=== PATIENT | female | born 1965 | race Caucasian/White ===

== ENCOUNTER → 2018-04-02 | Outpatient (CLI) | payer OTHER ==
[~2018-04-02] MED LIST: CLX20 PO; DICL-201 PO; EFF375 PO; EFF50 PO; FLX10 PO; HYDR-4079 PO; IRON
--- NOTE | 2018-04-03 13:44 | POLYSOMNOGRAPH REPORT ---
CLINICAL DATA: A 52-year-old female with a BMI of 23.56, referred by Dr. Lianne Lewis with symptoms of snoring and awakening gasping from sleep. She has very poor sleep hygiene. She does drink caffeinated beverages throughout the day and night. She does smoke cigarettes. SLEEP ARCHITECTURE: Total sleep period was 522.5 minutes. Total sleep time was 467.5 minutes divided between 438.5 minutes of non-REM sleep and 29 minutes of REM sleep. Sleep onset latency was 5.5 minutes. REM latency was delayed at 292 minutes. Sleep efficiency was 89%. Wake after sleep onset was 55 minutes. Sleep consisted of stage N2 77%, stage N3 16%, REM 6%, and stage N1 less than 1%. AROUSAL DATA: 82 arousals were recorded for an index of 11 per hour. PLM DATA: 84 limb movements during sleep were noted for an index of 10.8 per hour with arousal index of 0.5 per hour. RESPIRATORY DATA: Moderate sleep apnea was documented. The AHI was 16.8. There were 4 obstructive apneic episodes. The longest apneic episode was 15 seconds. There were 127 hypopneic episodes. The mean duration of hypopnea was 19.2 seconds. OXIMETRY DATA: Significant nocturnal hypoxemia was seen. Oxygen mariam was 76% during non-REM sleep. Mean saturation was 87%. Time below 89% was over 350 minutes. EKG: Heart rates ranged from 74-103 beats per minute. No arrhythmias were noted. PASSENGER INTERLINE CLERK'S COMMENTS: The patient slept in the right, left, and supine positions. Snoring was moderate, rated 3 on a scale of 1-5. She awoke to use the restroom once through the night. She stated that was a very good nights sleep. She was asked not to drink Mountain Dew or watch TV throughout the night and she slept well. IMPRESSION: Moderate sleep apnea/hypopnea with an AHI of 16.6 with severe nocturnal hypoxemia. RECOMMENDATIONS: The patient would benefit from a repeat sleep study with CPAP. TERESA
== END | disposition home or self-care (01) ==
LOC: C.NEUR 20:00
PROVIDERS: ATTEND Student in an Organized Health Care Education/Training Program
DX: R06.83 Snoring (principal); G25.81 Restless legs syndrome; F51.5 Nightmare disorder